=== PATIENT | female | born 1990 | race African-American/Black ===

== ENCOUNTER 2017-02-01 06:50 | Emergency (ER) | payer OTHER ==
[~2017-02-01] VITALS: Ht 165.1 cm; Wt 81.6 kg
[~2017-02-01 06:50] MED LIST: IBUPROFEN800 M1 PO; ZOFRAN ODT4 M1 PO
--- NOTE | 2017-02-01 07:28 | ED GENERAL ADULT ---
History of Present Illness General Chief Complaint: Neck/Upper Back Pain/Injury Stated Complaint: RIGHT SHOULDER AND NECK PAIN Source: patient, family Exam Limitations: no limitations Vital Signs & Intake/Output Vital Signs & Intake/Output Vital Signs Date Time Temp Pulse Resp B/P B/P Pulse O2 O2 Flow FiO2 Mean Ox Delivery Rate 02/01 0732 Room Air 02/01 0708 98.0 83 14 114/77 97 Room Air Allergies Coded Allergies: No Known Allergies (02/01/17) Reconcile Medications Cyclobenzaprine HCl 10 MG TABLET 1 TAB PO BID PAIN Ibuprofen 600 MG TABLET 1 TAB PO TID PRN PAIN with food Norethindrone-E.estradiol-Iron (Lo Loestrin Fe 1-10 Tablet) 1MG-10(24) TABLET 1 TAB PO DAILY PER PT (Reported) Triage Note: 26 Y/O FEMALE C/O PAIN TO R SIDED NECK, SHOULDER AND ARM X 3 HOURS; ONSET WHEN SHE WOKE UP. PT DENIES KNOWN INJURY OR TRAUMA STATING SHE WOKE UP AND NOTICED IT HURT TO TURN HEAD TO THE RIGHT SIDE. HAS NOT TAKEN ANY MEDS FOR PAIN. DESCRIBES "PINCHING" WITH MOVEMENT OF HEAD/NECK. Triage Nurses Notes Reviewed? yes Onset: Abrupt Duration: hour(s): Timing: recent history : No Patient currently breastfeeds: No HPI: 02/01/17 7:41 am 26-year-old female presents to the emergency department with a sudden onset of right trapezius soreness and decreased range of motion to her neck. The patient states she was in her usual state of health until last night when she woke up at approximately 3 in the morning she went back to bed and then woke up with severe pain in the right side of her neck and decreased range of motion to her right shoulder. She denies any right arm swelling. So the onset of symptoms was abrupt, the duration was over the past several hours, the severity was significant as her symptoms required her to come to the emergency department for care. She has no associated right arm swelling, paresthesias, shortness of breath. She does have a past medical history of pseudotumor cerebri. She denies any visual complaints or headache at this time. She is also on oral contraceptives and Diamox. Past History Travel History Traveled to [place] past 21 day No Medical History Any Pertinent Medical History? see below for history Neurological: NONE EENT: PAPILEDEMA Cardiovascular: NONE Respiratory: NONE Gastrointestinal: NONE Hepatic: NONE Renal: NONE Musculoskeletal: NONE Psychiatric: NONE Endocrine: NONE Blood Disorders: NONE Cancer(s): NONE [employer] SANDSTONE/Reproductive: NONE Surgical History Surgical History: N Psychosocial History What is your primary language [place] Citizen Tobacco Use: Never used Family History Hx Contributory? No Review of Systems Review of Systems Constitutional: Reports: no symptoms. EENTM: Denies: blurred vision, double vision, visual changes. Respiratory: Denies: short of breath. Cardiovascular: Denies: chest pain. GI: Reports: no symptoms. Genitourinary: Reports: no symptoms. Musculoskeletal: Reports: see HPI. Skin: Denies: rash. Neurological/Psychological: Denies: paresthesia. Hematologic/Endocrine: Reports: no symptoms. Immunologic/Allergic: Reports: no symptoms. Physical Exam Physical Exam General Appearance: well developed/nourished, alert, awake, anxious, mild distress Head: atraumatic, normal appearance Eyes: Bilateral: normal appearance, PERRL, EOMI. Ears, Nose, Throat: normal pharynx, normal ENT inspection Neck: limited range of motion Respiratory: normal breath sounds, chest non-tender, no respiratory distress Cardiovascular: regular rate/rhythm Peripheral Pulses: 4+ radial (R), 4+ radial (L) Gastrointestinal: non-tender Back: normal range of motion Extremities: normal inspection, decreased rom right shoulder Neurologic/Psych: no motor/sensory deficits, awake, alert, oriented x 3 Skin: intact, normal color, warm/dry Core Measures ACS in differential dx? No CVA/TIA Diagnosis: No Severe Sepsis Present: No Septic Shock Present: No Progress Differential Diagnoses I considered the following diagnoses in my evaluation of the patient: [Cervical radiculopathy, trapezius muscle strain, rotator cuff injury, DVT, Lyme disease, arthritis, cervical strain] Plan of Care: Current Medications Sig/Mike Start time Last Medication Dose Stop Time Status Admin Cyclobenzaprine HCl 10 MG ONCE ONE 02/02 800 UNVr (Flexeril 10MG Tab) 02/01 801 Ibuprofen 600 MG ONCE ONE 02/02 800 UNVr (Motrin) 02/01 801 The patient was treated with by mouth Motrin and by mouth Flexeril in the emergency department. (JOSE SANDOVAL DO) Initial ED EKG: none Departure Departure Disposition: STILL A PATIENT Condition: Stable Clinical Impression Primary Impression: Trapezius muscle strain Referrals: GABE KUHN MD (PCP/Family) Departure Forms: Customer Survey General Discharge Information Prescriptions: Current Visit Scripts Ibuprofen 1 TAB PO TID PRN PAIN #20 TAB with food Cyclobenzaprine HCl 1 TAB PO BID #20 TAB Comments 02/01/17 9 AM The patient's pain is somewhat improved. She has greater range of motion to her right arm. She again denies any shortness of breath. We will treat her with ibuprofen and Flexeril and she will follow-up with her doctor in 72 hours. Critical Care Note Critical Care Note Critical Care Time: non-applicable
[2017-02-01] MEDS ORDERED: LO LOESTRIN FE1 EACH PO (07:33)
[2017-02-01] MEDS ORDERED: IBUPROFEN600 M1 PO (08:58)
[2017-02-01] MEDS ORDERED: CYCLOBENZAPRINE10 M1 PO (08:59)
[2017-02-01 09:14] VITALS: BP 112/78
== END 2017-02-01 09:14 ==
LOC: ERH 06:50
DX: S46.911A Strain of unspecified muscle, fascia and tendon at shoulder and upper arm level, right arm, initial encounter (principal); X58.XXXA Exposure to other specified factors, initial encounter; Y93.89 Activity, other specified; Y92.9 Unspecified place or not applicable